=== PATIENT | male | born 1995 | race Caucasian/White ===

== ENCOUNTER 2018-09-28 06:39 | Emergency (ER) | payer OTHER ==
[~2018-09-28] VITALS: Ht 180.3 cm; Wt 90.9 kg
[2018-09-28] MEDS ORDERED: NS 1,000 ML IV ONE (07:00)
[2018-09-28 07:15] LABS: BASO % 0.5 % (0.0-1.0); EOS # 0.3 10^3/uL (0.0-0.50); HEMATOCRIT 43.9 % (42.0-52.0); HEMOGLOBIN 15.4 g/dl (13.5-17.5); LYMPH % 37.7 % (24.0-44.0); MEAN CORPUSCULAR HEMOGLOBIN 31.8 pg (27.0-33.0); MEAN CORPUSCULAR HGB CONC 35.1 g/dl (32.0-36.5); MEAN CORPUSCULAR VOLUME 90.7 fl (80.0-96.0); MONO # 0.7 10^3/uL (0.0-0.8); MONO % 8.9 % (0.0-5.0); NEUTROPHILS # 3.9 10^3/uL (1.8-7.7); NEUTROPHILS % 48.8 % (36.0-66.0); PLATELET COUNT, AUTOMATED 206 10^3/uL (150-450); RED BLOOD COUNT 4.84 10^6/uL (4.30-6.10)
[2018-09-28 07:40] LABS: INFLUENZA A AMPLIFICATION NEGATIVE (NEGATIVE); INFLUENZA B AMPLIFICATION NEGATIVE (NEGATIVE)
[2018-09-28 07:49] LABS: ALBUMIN 3.8 GM/DL (3.2-5.2); ALT/SGPT 23 U/L (12-78); AMYLASE 32 U/L (25-115); BILIRUBIN,DIRECT 0.1 MG/DL (0.0-0.2); BILIRUBIN,TOTAL 0.5 MG/DL (0.2-1.0); BLOOD UREA NITROGEN 13 MG/DL (7-18); CALCIUM LEVEL 8.8 MG/DL (8.5-10.1); CARBON DIOXIDE LEVEL 28 MEQ/L (21-32); CHLORIDE LEVEL 106 MEQ/L (98-107); CREATININE FOR GFR 1.06 MG/DL (0.70-1.30); GLOMERULAR FILTRATION RATE > 60.0 (>60); GLUCOSE, FASTING 85 MG/DL (70-100); LIPASE 96 U/L (73-393); POTASSIUM SERUM 4.1 MEQ/L (3.5-5.1); SODIUM LEVEL 140 MEQ/L (136-145); TOTAL PROTEIN 6.8 GM/DL (6.4-8.2)
[2018-09-28] MEDS ORDERED: ISOVUE-370 76% 100ML VIAL (Q9967) As Ordered ONE (07:58)
--- NOTE | 2018-09-28 08:26 | REP ---
CT of the abdomen and pelvis with IV contrast, without bowel contrast for lower abdominal pain: There are no comparisons. The visualized lung jerry are unremarkable. The hepatic parenchyma, gallbladder, pancreas, spleen, adrenals, kidneys and abdominal aorta are unremarkable. There is no bowel distension or obstruction. There is no ascites. There is no adenopathy. Pelvis: The appendix is unremarkable. There is no ascites or adenopathy. The bladder is unremarkable. The pelvic bowel loops are unremarkable. Impression: Essentially negative CT study of the abdomen and pelvis. Electronically Signed by Speedy Mejia MD 09/28/2018 08:17 A
[2018-09-28 09:48] VITALS: BP 108/57
[2018-09-28 11:36] LABS: CHLAMYDIA DNA AMPLIFICATION NEGATIVE (NEGATIVE); GC DNA AMPLIFICATION NEGATIVE (NEGATIVE)
== END 2018-09-28 09:49 | disposition home or self-care (01) ==
LOC: M ED 06:39
DX: R10.30 Lower abdominal pain, unspecified (principal); R11.0 Nausea
CPT/HCPCS: 36415; 74177; 80048; 80076; 81001; 82150; 83690; 85025; 87491; 87502; 87591; 96360; 99284; Q9967

== ENCOUNTER → 2021-03-06 | Outpatient (REF) | payer OTHER ==
--- NOTE | 2021-03-06 17:28 | REP ---
INDICATION: MIXED HYPERLIPIDEMIA. COMPARISON: None. TECHNIQUE: Four views FINDINGS: No acute fracture or destructive osseous lesion. IMPRESSION: Within normal limits <Electronically signed by Preston Yanez > 03/06/21 [id number]
--- NOTE | 2021-03-06 17:30 | REP ---
INDICATION: MIXED HYPERLIPIDEMIA. COMPARISON: None. TECHNIQUE: PA and lateral FINDINGS: The superior mediastinal structures are midline. The cardiac silhouette is unremarkable in size, shape, and position. The diaphragmatic surfaces of the lungs are regular, and the costophrenic angles are clear. The pulmonary jerry are clear. The imaged osseous structures are intact. IMPRESSION: There is no acute cardiopulmonary disease. <Electronically signed by Preston Yanez > 03/06/21 1154
== END ==
LOC: M PLAIMG 10:32 → EDSTATUS 03-20 07:20
PROVIDERS: ATTEND Internal Medicine
DX: M25.531 Pain in right wrist (principal); R07.9 Chest pain, unspecified